=== PATIENT | male | born 1965 | race Hispanic/Latino ===

== ENCOUNTER 2019-03-30 15:35 | Emergency (ER) | payer SELFPAY ==
[2019-03-30] MEDS ORDERED: Adacel (T-DAP) 0.5 ML SYRINGE ONE ×2 (15:44→15:47)
[2019-03-30] MEDS ORDERED: Lidocaine 4% Cream 5 GM TUBE w/ Tegaderm ONE (15:52)
--- NOTE | 2019-03-30 15:57 | CT ---
CT BRAIN WITHOUT CONTRAST: HISTORY:Trauma, headache COMPARISON: None FINDINGS: There are foci of decreased attenuation in the periventricular white matter, consistent with chronic small vessel ischemic disease. No evidence of acute infarct, hemorrhage, midline shift or abnormal extra-axial fluid collections is seen. The ventricular size is appropriate and the basilar cisterns are patent. The bony calvarium is intact. The visualized paranasal sinuses and mastoid air cells are well aerated. IMPRESSION: No CT evidence of acute intracranial process.
[2019-03-30] MEDS ORDERED: Bacitracin 1 PK ONE (16:53)
[2019-03-30] MEDS ORDERED: Ibuprofen 800 MG TAB ONE (16:57)
== END 2019-03-30 16:58 | disposition home or self-care (01) ==
LOC: ERS 15:35
DX: S01.01XA Laceration without foreign body of scalp, initial encounter (principal); Z23 Encounter for immunization; W22.8XXA Striking against or struck by other objects, initial encounter
CPT/HCPCS: 12005; 70450; 90471; 90715

== ENCOUNTER 2019-04-07 19:55 | Emergency (ER) | payer OTHER | END 2019-04-07 20:25 | disposition home or self-care (01) | LOC: ERS 19:55 | DX: S01.01XD Laceration without foreign body of scalp, subsequent encounter (principal); X58.XXXD Exposure to other specified factors, subsequent encounter | CPT/HCPCS: 99282 ==